=== PATIENT | female | born 1945 | race Caucasian/White ===

== ENCOUNTER → 2016-08-25 | Outpatient (REF) | payer MEDICARE | LOC: M LAB REF 15:16 | PROVIDERS: ATTEND Internal Medicine Medical Oncology | DX: C50.919 Malignant neoplasm of unspecified site of unspecified female breast (principal) ==

== ENCOUNTER → 2017-02-28 | Outpatient (REF) | payer OTHER ==
[2017-02-28 19:07] LABS: PERCENT SATURATION 11.1 % (13.2-45.0)
[2017-02-28 19:09] LABS: FOLATE 13.4 NG/ML
== END ==
LOC: M LAB REF 17:19
PROVIDERS: ATTEND Internal Medicine Medical Oncology
DX: C50.919 Malignant neoplasm of unspecified site of unspecified female breast (principal)

== ENCOUNTER → 2017-05-08 | Outpatient (REF) | payer OTHER ==
[2017-05-08 19:03] LABS: PERCENT SATURATION 10.8 % (13.2-45.0)
== END ==
LOC: M LAB REF 18:00
PROVIDERS: ATTEND Internal Medicine Medical Oncology
DX: C50.919 Malignant neoplasm of unspecified site of unspecified female breast (principal)

== ENCOUNTER → 2017-06-06 | Outpatient (REF) | payer OTHER ==
[2017-06-06 19:19] LABS: VITAMIN B12 LEVEL 278 PG/ML (247-911)
[2017-06-06 19:22] LABS: FERRITIN 8 NG/ML (8-252); IRON (FE) 95 UG/DL (50-170); PERCENT SATURATION 19.2 % (13.2-45.0); TOTAL IRON BINDING CAPACITY 496 UG/DL (250-450)
[2017-06-09 14:16] LABS: INTRINSIC FACTOR ANTIBODY 0.9 AU/mL (0.0-1.1)
== END ==
LOC: M LAB REF 17:30
DX: D50.9 Iron deficiency anemia, unspecified (principal); C50.919 Malignant neoplasm of unspecified site of unspecified female breast
CPT/HCPCS: 83550

== ENCOUNTER → 2017-08-07 | Outpatient (REF) | payer OTHER ==
[2017-08-07 17:52] LABS: FERRITIN 185 NG/ML (8-252); IRON (FE) 83 UG/DL (50-170); PERCENT SATURATION 24.7 % (13.2-45.0); TOTAL IRON BINDING CAPACITY 336 UG/DL (250-450)
== END ==
LOC: M LAB REF 16:38
DX: C50.919 Malignant neoplasm of unspecified site of unspecified female breast (principal); D50.9 Iron deficiency anemia, unspecified; E53.9 Vitamin B deficiency, unspecified
CPT/HCPCS: 83550

== ENCOUNTER → 2017-10-03 | Outpatient (REF) | payer OTHER ==
[2017-10-03 18:45] LABS: FOLATE 22.2 NG/ML; VITAMIN B12 LEVEL 260 PG/ML
[2017-10-03 19:11] LABS: FERRITIN 117 NG/ML (8-252); IRON (FE) 98 UG/DL (50-170); PERCENT SATURATION 27.6 % (13.2-45.0); TOTAL IRON BINDING CAPACITY 355 UG/DL (250-450)
== END ==
LOC: M LAB REF 17:34
DX: C50.112 Malignant neoplasm of central portion of left female breast (principal); Z17.0 Estrogen receptor positive status [ER+]
CPT/HCPCS: 82746

== ENCOUNTER → 2017-10-31 | Day surgery (SDC) | payer OTHER ==
[~2017-10-31] MED LIST: LIDOCAINE 2% INJ 100 MG/5 ML SDV (FOR ANES.) As Ordered; PROPOFOL 200 MG/20 ML VIAL As Ordered
[2017-10-31] MEDS: NS 1,000 ML IV ×2 (12:30→13:20)
== END | disposition home or self-care (01) ==
LOC: M OPP 12:23
DX: Q39.9 Congenital malformation of esophagus, unspecified (principal); K29.70 Gastritis, unspecified, without bleeding; R76.8 Other specified abnormal immunological findings in serum; D50.9 Iron deficiency anemia, unspecified; E11.9 Type 2 diabetes mellitus without complications; I10 Essential (primary) hypertension; M12.9 Arthropathy, unspecified; Z79.84 Long term (current) use of oral hypoglycemic drugs; Z79.82 Long term (current) use of aspirin; Z79.899 Other long term (current) drug therapy; Z85.3 Personal history of malignant neoplasm of breast; Z87.19 Personal history of other diseases of the digestive system; Z90.12 Acquired absence of left breast and nipple; Z92.21 Personal history of antineoplastic chemotherapy; Z80.3 Family history of malignant neoplasm of breast
CPT/HCPCS: 43239

== ENCOUNTER → 2018-02-12 | Outpatient (REF) | payer OTHER ==
[2018-02-12 14:38] LABS: FERRITIN 173 NG/ML (8-252); IRON (FE) 97 UG/DL (50-170); PERCENT SATURATION 26.6 % (13.2-45.0); TOTAL IRON BINDING CAPACITY 365 UG/DL (250-450)
== END ==
LOC: M LAB REF 13:40
DX: Z17.0 Estrogen receptor positive status [ER+] (principal); C50.112 Malignant neoplasm of central portion of left female breast; D51.9 Vitamin B12 deficiency anemia, unspecified
CPT/HCPCS: 83550

== ENCOUNTER → 2018-02-20 | Outpatient (CLI) | payer OTHER | LOC: M RAD 10:18 | DX: Z85.3 Personal history of malignant neoplasm of breast (principal) | CPT/HCPCS: 78306 ==

== ENCOUNTER → 2018-02-28 | Outpatient (CLI) | payer OTHER ==
[~2018-02-28] MED LIST changes: -LIDOCAINE 2% INJ 100 MG/5 ML SDV (FOR ANES.) As Ordered; +PROHANCE 279.3MG/ML 15ML VIAL (A9576) As Ordered; -PROPOFOL 200 MG/20 ML VIAL As Ordered
== END ==
LOC: M RAD 15:02
DX: M51.26 Other intervertebral disc displacement, lumbar region (principal); Z85.3 Personal history of malignant neoplasm of breast; M48.061 Spinal stenosis, lumbar region without neurogenic claudication; M51.27 Other intervertebral disc displacement, lumbosacral region
CPT/HCPCS: A9576

== ENCOUNTER → 2018-10-17 | Outpatient (CLI) | payer MEDICARE ==
[~2018-10-17] MED LIST changes: +AMLO10TA5 PO; +ASPI1TAB15 PO; +ASPI81TA21 PO; +CALC600T60 PO; +FUROSEMIDE 20 MG/2 ML VIAL (J1940) As Ordered ONE; +GABA-1171 PO; +IBUP-1022 PO; +LIDOCAINE 1% MDV 20ML VIAL As Ordered ONE; +LISI-538 PO; +METF-415 PO; +METF10004 PO; +OMEP40CA2 PO; -PROHANCE 279.3MG/ML 15ML VIAL (A9576) As Ordered; +VITAD1000T PO
--- NOTE | 2018-10-17 15:12 | REP ---
POST BIOPSY MAMMOGRAM RIGHT BREAST: Following ultrasound guided biopsy of the right breast, mammographic images are obtained in the ML and CC projections. A metallic clip is seen laterally and somewhat superiorly at the site of the biopsy. Electronically Signed by Obdulio Jacinto MD 10/17/2018 03:27 P
--- NOTE | 2018-10-17 15:14 | REP ---
ULTRASOUND RIGHT BREAST: Real-time sonographic evaluation of the right breast performed in the region of 9 o'clock. Comparison made with prior study of 09/10/2018. Elongated heterogeneous hypoechoic area is seen at 9 o'clock as seen on the recent ultrasound. Ultrasound guided biopsy was recommended based on that prior study. The abnormality appears to include dilated ducts with internal echogenicity. We will proceed with ultrasound guided biopsy. Electronically Signed by Obdulio Jacinto MD 10/17/2018 03:28 P
--- NOTE | 2018-10-17 16:58 | REP ---
Ultrasound-guided right breast biopsy. The procedure was performed by JONA Salvador, under the direct supervision of Dr. Jacinto. The patient has a history of a hypoechoic area at the 9 o'clock position on a previous outside ultrasound dated 09/10/2018 and again today. The risks and benefits of the procedure were explained to the patient and informed consent was obtained both verbally and written. Directly prior to the start of the procedure, a formal timeout was completed in the procedure room. The right breast mass was localized using ultrasound guidance. The skin was prepped and draped in a sterile fashion. 13 ml 1% lidocaine was used as a local anesthetic. Using ultrasound guidance a 14-gauge Bard biopsy needle was inserted and 4 core biopsy samples were obtained. A marker clip was placed at the biopsy site. The patient tolerated the procedure well and there were no immediate complications. After the appropriate monitored convalescence the patient was discharged from the department. Reviewed by JOAN Gruber 10/17/2018 04:33 P Electronically Signed by Obdulio Jacinto MD 10/17/2018 04:50 P
== END ==
LOC: M RADPRO 12:16
PROVIDERS: ATTEND Surgery
DX: N60.21 Fibroadenosis of right breast (principal)
CPT/HCPCS: 19083; 76642; 77065; 88305; J1940

== ENCOUNTER → 2020-12-28 | Outpatient (CLI) | payer MEDICARE ==
[~2020-12-28] MED LIST changes: -AMLO10TA5 PO; +AMLO1TAB25 PO; +ASPI-546 PO; -ASPI1TAB15 PO; +ASPI81CH48 PO; +B-12100021 PO; +CHOL100029 PO; +CYAN1000VL IM; +FERR240T PO; -FUROSEMIDE 20 MG/2 ML VIAL (J1940) As Ordered ONE; +GABA-282 PO; -LIDOCAINE 1% MDV 20ML VIAL As Ordered ONE; -LISI-538 PO; +LISI20TA33 PO; -OMEP40CA2 PO; +OMEP40CA4 PO; -VITAD1000T PO; +VITATAB74 PO
== END ==
LOC: M PLAIMG 12:31
DX: M89.9 Disorder of bone, unspecified (principal); C50.919 Malignant neoplasm of unspecified site of unspecified female breast; Z53.8 Procedure and treatment not carried out for other reasons